=== PATIENT | female | born 1955 | race Caucasian/White ===

== ENCOUNTER 2017-07-27 14:46 | Inpatient (IN) | payer OTHER ==
[2017-07-27] MEDS ORDERED: BISACODYL 10 MG SUPP PR PRN (17:59)
--- NOTE | 2017-07-27 18:00 | PDOREHIP ---
Admission [facility] - Admission - 3 Day Assessment Period Admission Date/Day 1: 07/27/17 Day 2: 07/28/17 Day 3: 07/29/17 - Active Diagnoses Comorbidities and Co-existing Conditions at Admission: 41219. None of the Above - Skin Conditions Unhealed Pressure Ulcer (1 or more/Stage 1 or >)-Admission: 0. No
[2017-07-27] MEDS: ACETAMINOPHEN 325 MG TAB PO PRN (18:11)
--- NOTE | 2017-07-27 19:45 | GHP ---
[f rep st] HISTORY AND PHYSICAL POST ADMISSION PHYSICIAN EVALUATION AND REHABILITATION TREATMENT PLAN DATE OF ADMISSION: 07/27/2017 DATE OF EVALUATION: 07/27/2017. TIME OF EVALUATION: 1715. REFERRING FACILITY: [facility]. REFERRING PHYSICIAN: Dr. Valencia IMPAIRMENT GROUP: 1.2. DATE OF ONSET: 07/22/2017. REFERRING PHYSICIAN: Dr. Valencia. CONSULTING PHYSICIANS: She was seen by: 1. Dr. Jenaro Zafar, neurology service. 2. Neurointerventional Radiology. REHABLITATION DIAGNOSIS: Ischemic stroke with subsequent hemorrhagic transformation. ETIOLOGIC DIAGNOSIS: Right body involvement, (left brain). HISTORY OF PRESENT ILLNESS: This patient presented to [facility] on 07/22, with global aphasia, right facial droop and dysarthria. A head CT there showed a left MCA occlusion. She was treated with tPA and transferred to [facility] for possible intraarterial therapy. At [facility], she underwent a thrombectomy. Hospital course was complicated by a left temporal intracranial hemorrhage and extension to subarachnoid hemorrhage in the left frontoparietal lobes. Later, the hematoma enlarged with mild mass effect with a 3 mm [id number] shift. She underwent transthoracic and transesophageal echocardiograms. She has she was found to have a small patent foramen ovale, rvfzmhau-[id number]-[id number] mitral regurgitation, left atrial enlargement, and mild aortic regurgitation. She was also noted to have pulmonary hypertension, with an estimated right ventricular systolic pressure of 47. She was treated with atorvastatin for secondary stroke prophylaxis, levetiracetam for seizure prophylaxis, and acetaminophen for headache. She had been taking aspirin prior to the stroke and aspirin was discontinued due to the intracranial bleed. Plan for anticoagulation was to initiate for likely atrial fibrillation 2 weeks after hospital discharge, which would be August 10. STUDIES AND LABS: In the hospital, she had extensive repeated brain imaging. CT brain perfusion scanning on 07/22/2017, showed a 42 mL mismatched volume consistent with moderate-sized penumbra in the left MCA distribution. Head CT on the same day showed development of a large amount of subarachnoid hemorrhage in the left cerebral hemisphere and the left Sylvian fissure with mild mass effect on the left lateral ventricle. CT angiogram on 07/22, showed successful revascularization of a proximal left inferior M2 division thrombus with revascularization of the entire M2 territory. Additionally, there was congregational of flow past a nonocclusive M3 thrombus. Vasospasm was treated with intraarterial verapamil. There was a 50% narrowing of the cervical left internal carotid artery and tortuosity, and there were changes suggestive of atherosclerotic disease throughout the left internal carotid artery. Head and neck CT was otherwise normal in terms of vasculature. Head CT on 07/23/2017, showed slight interval increase in the size of the left temporoparietal intraaxial hematoma, but improvement of the left hemispheric subarachnoid hemorrhage. Head CT on 07/25, showed some vasogenic and cytotoxic edema adjacent to the hematoma, but improvement in the left hemispheric subarachnoid hemorrhage. A CBC on 07/25, showed mild anemia with a hemoglobin of 11.7 and hematocrit of 36.3, and a BMP on the same date showed mild hypernatremia with a sodium of 146. Her chloride was elevated at 116, otherwise renal function and electrolytes were within normal limits. INR was normal. Hemoglobin A1c was 5.4 and LDL was 35. PRECAUTIONS: She is a fall risk. She is an aspiration risk. She is a seizure risk. ACTIVE COMORBIDITIES: She questionably has the comorbidity of morbid obesity, but she would need to definitively have complications of obesity for it to be considered morbid, with a BMI of 37.5. Otherwise, she has no active tier 1, tier 2, or tier 3 comorbidities. PAST MEDICAL HISTORY: 1. Rheumatic heart disease as a child. 2. Hypothyroidism. PAST SURGICAL HISTORY: Hysterectomy in 1995. PREHOSPITAL MEDICATIONS: 1. Aspirin 81 mg p.o. daily. 2. Atorvastatin 10 mg p.o. daily. 3. Estradiol 0.5 mg p.o. daily. 4. [place] Thyroid 81.25 mg p.o. daily. ADMISSION MEDICATIONS: 1. Levetiracetam 1000 mg p.o. b.i.d. for 3 more doses, so to be completed with a 2nd dose on July 28. 2. Atorvastatin 40 mg 1 p.o. daily. 3. Calcium plus vitamin D 600/400 one p.o. daily. 4. [place] Thyroid 32.5 mg p.o. daily. 5. Vitamin D 2000 units p.o. daily. ALLERGIES: There are no known drug allergies. FAMILY HISTORY: Noncontributory. She reports that there is no family history of blood clotting disorders. PSYCHOSOCIAL HISTORY: She is . She lives with her . 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 She is a nonsmoker. REVIEW OF SYSTEMS: She complains of a headache in the left temporal region. She is aware that she has difficulty finding words. She denies difficulty swallowing, vision changes, weakness, numbness or tingling of the extremities. She denies cough or dyspnea, though she has been intermittently using oxygen in the hospital. Her reports that she snores, though he is not aware that she has had apneas. She says she usually awakens refreshed in the morning, but sometimes she does not. She denies a typical morning headache. She noticed palpitations prior to her stroke. She denies any palpitations currently, and there is no chest pain. She has a cough occasionally, including when she is eating or drinking. She denies dyspnea, though she recently found herself short of breath while playing golf with her . She denies nausea, vomiting, constipation, or diarrhea. She denies dysuria, urinary urgency, or urinary incontinence. She denies skin rash or skin breakdown. She denies joint pain or joint swelling, and she denies recent weight change. She denies fevers or chills. Otherwise, a 10-point review of systems is negative. PHYSICAL EXAMINATION: VITAL SIGNS: Not yet available in the chart. GENERAL: This is a well-nourished, well-developed, obese woman lying in bed in street clothes, cooperative, in mild distress due to headache. HEENT: Extraocular movements are intact. Pupils are equal, round, reactive to light. Mucous membranes are moist. Dentition is in good condition. She has a crowded airway , Mallampati class 4. NECK: Supple. HEART: There is a regular rate and rhythm with no murmurs, rubs, or gallops. LUNGS: Clear to auscultation bilaterally. ABDOMEN: Soft, nontender, nondistended with normoactive bowel sounds and no hepatosplenomegaly. EXTREMITIES: There is no cyanosis, clubbing , or edema. Radial pulses are 2+ bilaterally. Dorsalis pedis pulses are trace to 1+ bilaterally. NEUROLOGIC: She is alert and oriented x3. She has expressive aphasia with frequent word-finding difficulty and word substitution. There are no neologisms, however, and her speech that she does produce is intelligible. Cranial nerves 2-12 are grossly intact. There is no focal weakness. Sensation is intact to light touch and there is no extinction to double simultaneous stimulation. Deep tendon reflexes are 2+ bilaterally at the biceps, patella, and Achilles tendons. Plantar reflex is indeterminate. There is no pronator drift. There is no tremor. There is no dysmetria. There is no rigidity. CURRENT LEVEL OF FUNCTION: Per the preadmission screen regarding diet, feeding , and swallowing, she was on a mechanical soft diet with thin liquids and she was noted to have mild dysphagia. Regarding dressing, she was able to do this on the edge of the bed with contact guard assist to don her socks.For toileting , she required contact guard assist for transfers. Regarding bowel and bladder , she was continent. Bed mobility required contact guard assist for transfers. She required contact guard to minimal assist for sit to stand, requiring assistance to steady herself initially when she was standing. Sitting required minimal assist, though on exam today, she is independent with seated balance. Endurance was fair. She walked 10 feet with an unsteady gait pattern, mild medial to lateral sway requiring minimal assist initially, and then was able to ambulate 50 feet with a front-wheeled walker with a step-through gait pattern and contact guard assist. She had gait decomposition when distracted and she was unable to multitask. Regarding communication, she was noted to have expressive and receptive aphasia and moderate nonverbal oral apraxia. Regarding upper extremity, she was noted to have decreased coordination and to require increased time with maximal cues to complete serial bilateral finger opposition. IMPRESSION: This patient is a 61-year-old woman, who suffered a cerebrovascular accident causing global aphasia, right facial droop and dysarthria. She was treated with tPA thrombolysis and, subsequently, emergent thrombectomy. Her deficits resolved, but post procedure she developed a left parietotemporal hemorrhage with subarachnoid spread. She was transferred to the ICU and placed on levetiracetam for seizure prophylaxis. Evaluation for etiology of stroke included transthoracic and transesophageal echocardiogram. She was found to have a small interatrial shunt. There was no clot in the left atrial appendage and blood loss through the appendage was 37 cm /sec. She had moderate mitral regurgitation and mild aortic regurgitation. It was felt that she likely had paroxysmal atrial fibrillation due to left atrial enlargement. Anticoagulation was contraindicated immediately post hemorrhage, but was recommended to begin 2 weeks after hospital discharge, or approximately August 10, and she was recommended to have a followup head CT scan approximately August 10. Evaluation also revealed pulmonary hypertension with a right ventricular systolic pressure estimated at 47 mmHg. She was participating in therapies and appropriate for inpatient rehabilitation. Her goal is to complete a rehabilitation stay and then return home with family and supportive services as needed. For a safe discharge, it is anticipated that she will achieve independence with eating, dressing, grooming, and bed mobility, modified independence to independence for transfers and ambulation with the least restrictive device. She will need to be able to negotiate stairs. She will be tolerating the least restrictive diet. She will be able to make her needs known and communicate clearly. She will need to make cognitive gains to be able to be home alone safely. She will have therapy with Physical Therapy, Occupational Therapy, and Speech and Language Pathology for 60 minutes per day per discipline on 5-7 days of the week. Her expected duration of stay is 5-7 days. It is anticipated that upon discharge she will continue to benefit from outpatient speech and language pathology, as well as a stroke support group. PLAN: 1. Stroke in the left M2 branch of the middle cerebral artery, status post thrombolysis and thrombectomy with hemorrhagic transformation. She has deficits regarding mobility and activities of daily living. She will have treatment per PT and OT. 2. Expressive aphasia and possible cognitive impairment. Assessment and treatment per Speech and Language Pathology. 3. Dysphagia, mild. Continue DD2 diet as ordered out of the hospital. Assessment per Speech and Language Pathology. 4. Likely paroxysmal atrial fibrillation. Given the size and extent of her intracranial hemorrhage, anticoagulation is contraindicated in the short term. The plan is for her to have a repeat head CT on or about 08/10/2017, with decision regarding anticoagulation to depend on findings on the head CT. 5. Headache, likely related to intracranial hemorrhage. She has been receiving acetaminophen in the hospital and this will be continued. 6. Pulmonary hypertension on echocardiogram. This may be due to mitral valve regurgitation, however, she is also at risk for obstructive sleep apnea. She will have monitoring of her oxygen saturation and will receive supplemental oxygen on a p.r.n. basis. She is advised to have a full sleep study after discharge for definitive diagnosis and treatment. 7. Dyslipidemia. She was taking atorvastatin prior to her hospitalization and the dose has been increased. Continue atorvastatin. 8. Hypothyroidism, continue [place] Thyroid. 9. Prophylaxis. It is likely that it would be safe to provide prophylactic dose of enoxaparin, however, will first observe her for mobility. If she is able to ambulate 150 feet or greater 3 times a day, then it is unlikely that she will need prophylactic anticoagulation. She will have sequential compression devices at night. 10. Risk for seizure. There has been no seizure in the hospital. She has been on levetiracetam since she had her hemorrhage. This will be continued as per hospital discharge instructions through July 28. /[id number]/MODL MTDD
[2017-07-27] MEDS: levETIRAcetam 500 MG TAB PO SCH (20:05)
[2017-07-27] MEDS: ATORVASTATIN CALCIUM 40 MG TAB PO SCH (20:05)
[2017-07-28] MEDS: ACETAMINOPHEN 325 MG TAB PO PRN ×4 (00:36→19:29)
[2017-07-28] MEDS: levETIRAcetam 500 MG TAB PO SCH ×2 (08:58→20:19)
[2017-07-28] MEDS: CHOLECALCIFEROL VIT D3 2,000 UNITS TAB/CAP PO SCH (08:58)
[2017-07-28] MEDS: CALCIUM CARB W/VIT D 500 MG TAB PO SCH (08:58)
[2017-07-28] MEDS ORDERED: NATURE THROID 32.5 MG PO SCH (09:00)
--- NOTE | 2017-07-28 12:09 | SOAPPROG ---
SOAP Progress Note Assessment/Plan: Assessment: Stroke 07/22/17 in the left M2 branch of the middle cerebral artery, status post thrombolysis and thrombectomy with hemorrhagic transformation. * She has deficits regarding mobility and activities of daily living. She will have treatment per PT and OT. Expressive aphasia and possible cognitive impairment. Assessment and treatment per Speech and Language Pathology. Dysphagia, mild. Continue DD2 diet as ordered out of the hospital. Assessment per Speech and Language Pathology. Likely paroxysmal atrial fibrillation. * Given the size and extent of her intracranial hemorrhage, anticoagulation is contraindicated in the short term. * The plan is for her to have a repeat head CT on or about 08/10/2017, with decision regarding anticoagulation to depend on findings on the head CT. Headache, likely related to intracranial hemorrhage. * Adequate control with acetaminophen 650 mg q.4 hours p.r.n. but she is approaching her maximal dose today in early afternoon. Will add p.r.n. tramadol. Pulmonary hypertension on echocardiogram. * This may be due to mitral valve regurgitation, however, she is also at risk for obstructive sleep apnea. * She will have monitoring of her oxygen saturation and will receive supplemental oxygen on a p.r.n. basis. * She is advised to have a full sleep study after discharge for definitive diagnosis and treatment. Dyslipidemia. She was taking atorvastatin prior to her hospitalization and the dose has been increased. Continue atorvastatin. Hypothyroidism, continue [place] Thyroid. Prophylaxis. At most moderate risk due to age and obesity. There is no paralyzed limb. * Ambulated 150 feet with PT. Continue to work on mobility. She will have sequential compression devices at night. Risk for seizure. There has been no seizure in the hospital. She has been on levetiracetam since she had her hemorrhage. T * Continue levetiracetam 1000 mg twice daily as per hospital discharge instructions through July 28. 07/28/17 13:05 Subjective: Reports that she is getting some pain in her eyes especially on the left side this afternoon. She reports she has adequate pain control with acetaminophen. Nurse reported that she had wheezing and malaise earlier today; currently she is not complaining of any malaise or respiratory difficulty. No fevers or chills, no cough or dyspnea. Objective: Vital Signs Temp Pulse Resp BP Pulse Ox 36.3 C 62 16 131/76 H 95 07/28/17 08:00 07/28/17 08:00 07/28/17 08:00 07/27/17 19:33 07/28/17 08:00 07/27/17 07/28/17 07/29/17 05:59 05:59 05:59 Intake Total 600 350 Balance 600 350 Physical Exam - Physical Exam General Appearance: WD/WN, alert, no apparent distress, obese Respiratory: normal breath sounds, No crackles, No rhonchi, No wheezing Cardiac/Chest: regular rate, rhythm, edema (1+ bilateral pretibial), systolic murmur (2+ systolic left sternal border.), No diastolic murmur Skin: normal color, warm/dry Neuro/Psych: no motor/sensory deficits, alert, normal mood/affect, aphasia ( Expressive), speech abnormalities ICD10 Worksheet Patient Problems: Problems Problem Status Onset Aphasia S/P CVA Acute Non-traumatic intracranial subarachnoid hemorrhage Acute - ICD10 Problem Qualifiers (1) Aphasia S/P CVA (2) Non-traumatic intracranial subarachnoid hemorrhage
[2017-07-28] MEDS: traMADol 50 MG TAB PO PRN (14:56)
[2017-07-28] MEDS ORDERED: PNEUMOCOCCAL 0.5ML VACCINE VIAL IM ONE (15:04)
[2017-07-28] MEDS: NYSTATIN POWDER 15 GM BTL TP SCH ×2 (16:12→20:20)
[2017-07-28] MEDS: ATORVASTATIN CALCIUM 40 MG TAB PO SCH (20:19)
[2017-07-29] MEDS: ACETAMINOPHEN 325 MG TAB PO PRN ×2 (00:32→07:03)
[2017-07-29] MEDS: NATURE THROID 32.5 MG PO SCH (05:36)
[2017-07-29] MEDS: CALCIUM CARB W/VIT D 500 MG TAB PO SCH (08:15)
[2017-07-29] MEDS: CHOLECALCIFEROL VIT D3 2,000 UNITS TAB/CAP PO SCH (08:15)
[2017-07-29] MEDS: NYSTATIN POWDER 15 GM BTL TP SCH ×3 (08:22→21:08)
--- NOTE | 2017-07-29 10:33 | SOAPPROG ---
SOAP Progress Note Assessment/Plan: Assessment: Stroke 07/22/17 in the left M2 branch of the middle cerebral artery, status post thrombolysis and thrombectomy with hemorrhagic transformation. * Initial functional independence measure is 79 on 07/29/2017. Function fluctuates based on fatigue. She scored 46/56 on the Campbell balance inventory in the afternoon but had better balancing morning. She walked 150 feet standby assist with no device she has climbed diffuse stairs with rail and standby assist. She has a right ignoral and contacts objects on the right when walking. Motor planning deficits noted by PT and OT. Setup to standby assist for grooming and hygiene and dressing. Continue PT and OT. Language function/cognition. * Moderate to severe expressive aphasia. Mild to moderate receptive aphasia. * Deficits to memory, problem solving, impulse control. * Continue speech and language pathology. Dysphagia, mild. Continue DD2 diet; may advance to DD 3 diet today 07/29/2017. Headache, likely related to intracranial hemorrhage. * Per nursing, acetaminophen is more effective than tramadol. Will schedule acetaminophen 1000 mg q.8 hours. Continue tramadol 50 mg q.6 hours p.r.n. Likely paroxysmal atrial fibrillation. * Given the size and extent of her intracranial hemorrhage, anticoagulation is contraindicated in the short term. * The plan is for her to have a repeat head CT on or about 08/10/2017, with decision regarding anticoagulation to depend on findings on the head CT. Pulmonary hypertension on echocardiogram. * This may be due to mitral valve regurgitation, however, she is also at risk for obstructive sleep apnea. * Using O2 at night but not during the day. * She is advised to have a full sleep study after discharge for definitive diagnosis and treatment. Dyslipidemia. She was taking atorvastatin prior to her hospitalization and the dose has been increased. Continue atorvastatin. Hypothyroidism, continue [place] Thyroid. Prophylaxis. At most moderate risk due to age and obesity. There is no paralyzed limb. * Ambulated 150 feet with PT. Continue to work on mobility. She will have sequential compression devices at night. Risk for seizure. There has been no seizure in the hospital. She has been on levetiracetam since she had her hemorrhage. * Levetiracetam 1000 mg twice daily discontinued after 07/28/2017 per hospital discharge instructions. Attended staffing, 15 minutes. Discussed with case management, pharmacy, dietitian, PT, OT, [facility] ADMINISTRATOR. She lives with her . They are both retired. She has been handling most of household management including finances and cooking. There to local sons and a [id number] involved in her care. Plan to discharge home with family support. Tentative discharge date set for 2016. 07/29/17 09:59 Subjective: Report awakening around midnight with a headache and says her sleep was intermittent subsequently. Otherwise without complaints, in good spirits. Notes that her ability to speak is improving. No cough, dyspnea, fevers, chills. Objective: Vital Signs Temp Pulse Resp BP Pulse Ox 36.3 C 60 17 125/83 H 93 07/29/17 05:49 07/29/17 05:49 07/29/17 05:49 07/29/17 05:49 07/29/17 05:49 07/28/17 07/29/17 07/30/17 05:59 05:59 05:59 Intake Total 600 1200 Output Total 301 650 Balance 600 899 -650 - Time Spent With Patient Time Spent With Patient: Greater than 35 minutes floor time today, including more than 50% of time in coordination of care during staffing meeting, and counseling patient. Physical Exam - Physical Exam General Appearance: WD/WN, alert, no apparent distress, obese Respiratory: normal breath sounds, No crackles, No rhonchi, No wheezing Cardiac/Chest: regular rate, rhythm, edema (Trace bilateral pretibial), systolic murmur Skin: normal color, warm/dry Neuro/Psych: no motor/sensory deficits, alert, normal mood/affect, oriented x 3 , aphasia (Mild to moderate word-finding difficulties.) ICD10 Worksheet Patient Problems: Problems Problem Status Onset Aphasia S/P CVA Acute Non-traumatic intracranial subarachnoid hemorrhage Acute - ICD10 Problem Qualifiers (1) Aphasia S/P CVA (2) Non-traumatic intracranial subarachnoid hemorrhage
[2017-07-29] MEDS: traMADol 50 MG TAB PO PRN (12:31)
[2017-07-29] MEDS: ACETAMINOPHEN 500 MG TAB PO SCH ×2 (14:41→21:05)
[2017-07-29] MEDS: ATORVASTATIN CALCIUM 40 MG TAB PO SCH (21:05)
[2017-07-30] MEDS: ACETAMINOPHEN 500 MG TAB PO SCH ×3 (05:47→21:37)
[2017-07-30] MEDS: NATURE THROID 32.5 MG PO SCH (05:48)
[2017-07-30] MEDS: CHOLECALCIFEROL VIT D3 2,000 UNITS TAB/CAP PO SCH (07:53)
[2017-07-30] MEDS: CALCIUM CARB W/VIT D 500 MG TAB PO SCH (07:53)
[2017-07-30] MEDS: SENNOSIDES 1 TAB PO PRN (07:53)
[2017-07-30] MEDS: NYSTATIN POWDER 15 GM BTL TP SCH ×3 (09:00→21:38)
--- NOTE | 2017-07-30 09:40 | SOAPPROG ---
SOAP Progress Note Assessment/Plan: Assessment: Assessment: Stroke 07/22/17 in the left M2 branch of the middle cerebral artery, status post thrombolysis and thrombectomy with hemorrhagic transformation. * Initial functional independence measure is 79 on 07/29/2017. Function fluctuates based on fatigue. She scored 46/56 on the Campbell balance inventory in the afternoon but had better balancing morning. She walked 150 feet standby assist with no device she has climbed diffuse stairs with rail and standby assist. She has a right ignoral and contacts objects on the right when walking. Motor planning deficits noted by PT and OT. Setup to standby assist for grooming and hygiene and dressing. Continue PT and OT. LOW BACK PAIN- MECHANICAL FROM PROLINED SITTING AND ANTERIOR PELVIC TILT. WOULD BENEFIT FROM CORE STRENGTHENING AND PELVIC NEUTRAL POSTION Language function/cognition. * Moderate to severe expressive aphasia. Mild to moderate receptive aphasia. * Deficits to memory, problem solving, impulse control. * Continue speech and language pathology. Dysphagia, mild. Continue DD2 diet; may advance to DD 3 diet today 07/29/2017. Headache, likely related to intracranial hemorrhage. * Per nursing, acetaminophen is more effective than tramadol. Will schedule acetaminophen 1000 mg q.8 hours. Continue tramadol 50 mg q.6 hours p.r.n. * NO SCALP TENDERNESS, NO TENDERNESS OVER OCCIPITAL NERVE Likely paroxysmal atrial fibrillation. * Given the size and extent of her intracranial hemorrhage, anticoagulation is contraindicated in the short term. * The plan is for her to have a repeat head CT on or about 08/10/2017, with decision regarding anticoagulation to depend on findings on the head CT. Pulmonary hypertension on echocardiogram. * This may be due to mitral valve regurgitation, however, she is also at risk for obstructive sleep apnea. * Using O2 at night but not during the day. * She is advised to have a full sleep study after discharge for definitive diagnosis and treatment. Dyslipidemia. She was taking atorvastatin prior to her hospitalization and the dose has been increased. Continue atorvastatin. Hypothyroidism, continue [place] Thyroid. Prophylaxis. At most moderate risk due to age and obesity. There is no paralyzed limb. * Ambulated 150 feet with PT. Continue to work on mobility. She will have sequential compression devices at night. Risk for seizure. There has been no seizure in the hospital. She has been on levetiracetam since she had her hemorrhage. * Levetiracetam 1000 mg twice daily discontinued after 07/28/2017 per hospital discharge instructions. Plan: 07/30/17 09:41 Subjective: She c?o left sided scalp pain and LBP. Objective: Vital Signs Temp Pulse Resp BP Pulse Ox 36.5 C 64 18 138/68 H 96 07/30/17 05:51 07/30/17 07:59 07/30/17 05:51 07/30/17 07:59 07/30/17 05:51 07/29/17 07/30/17 07/31/17 05:59 05:59 04:59 Intake Total 1200 1740 840 Output Total 301 1350 300 Balance 899 390 540 Physical Exam - Physical Exam General Appearance: WD/WN, alert, no apparent distress Respiratory: lungs clear, normal breath sounds Cardiac/Chest: No edema Back: Normal inspection, Other (tenderness lubosacral region) Skin: other (No tenderness over scalp or occipital region. ) Extremities: No calf tenderness, No swelling, No Kyle's sign Neuro/Psych: alert (not oriented to year. ), cognition abnormalities ( expressive mild expressive apahasia), disoriented to time ICD10 Worksheet Patient Problems: Problems Problem Status Onset Aphasia S/P CVA Acute Non-traumatic intracranial subarachnoid hemorrhage Acute
[2017-07-30] MEDS: traMADol 50 MG TAB PO PRN ×2 (10:39→18:58)
[2017-07-30] MEDS: ATORVASTATIN CALCIUM 40 MG TAB PO SCH (21:38)
[2017-07-31] MEDS: ACETAMINOPHEN 500 MG TAB PO SCH ×3 (05:15→20:58)
[2017-07-31] MEDS: NATURE THROID 32.5 MG PO SCH (05:19)
[2017-07-31] MEDS: traMADol 50 MG TAB PO PRN ×2 (07:58→17:39)
[2017-07-31] MEDS: CALCIUM CARB W/VIT D 500 MG TAB PO SCH (07:58)
[2017-07-31] MEDS: CHOLECALCIFEROL VIT D3 2,000 UNITS TAB/CAP PO SCH (07:58)
[2017-07-31] MEDS: NYSTATIN POWDER 15 GM BTL TP SCH ×3 (07:59→20:59)
--- NOTE | 2017-07-31 09:27 | SOAPPROG ---
SOAP Progress Note Assessment/Plan: Assessment: Assessment: Stroke 07/22/17 in the left M2 branch of the middle cerebral artery, status post thrombolysis and thrombectomy with hemorrhagic transformation. * Initial functional independence measure is 79 on 07/29/2017. Function fluctuates based on fatigue. She scored 46/56 on the Campbell balance inventory in the afternoon but had better balancing morning. She walked 150 feet standby assist with no device she has climbed diffuse stairs with rail and standby assist. She has a right ignoral and contacts objects on the right when walking. Motor planning deficits noted by PT and OT. Setup to standby assist for grooming and hygiene and dressing. Continue PT and OT. LOW BACK PAIN- LESS THIS AM. MECHANICAL FROM PROLONGED SITTING AND ANTERIOR PELVIC TILT. WOULD BENEFIT FROM CORE STRENGTHENING AND PELVIC NEUTRAL POSTION Language function/cognition. * Moderate to severe expressive aphasia. Mild to moderate receptive aphasia. * Deficits to memory, problem solving, impulse control. * Continue speech and language pathology. Dysphagia, mild. Continue DD2 diet; may advance to DD 3 diet today 07/29/2017. Headache, likely related to intracranial hemorrhage. NO C/O GUARDADO OR SCALP PAIN THIS AM. * Per nursing, acetaminophen is more effective than tramadol. Will schedule acetaminophen 1000 mg q.8 hours. Continue tramadol 50 mg q.6 hours p.r.n. * NO SCALP TENDERNESS, NO TENDERNESS OVER OCCIPITAL NERVE Likely paroxysmal atrial fibrillation. * Given the size and extent of her intracranial hemorrhage, anticoagulation is contraindicated in the short term. * The plan is for her to have a repeat head CT on or about 08/10/2017, with decision regarding anticoagulation to depend on findings on the head CT. Pulmonary hypertension on echocardiogram. * This may be due to mitral valve regurgitation, however, she is also at risk for obstructive sleep apnea. * Using O2 at night but not during the day. * She is advised to have a full sleep study after discharge for definitive diagnosis and treatment. Dyslipidemia. She was taking atorvastatin prior to her hospitalization and the dose has been increased. Continue atorvastatin. Hypothyroidism, continue [place] Thyroid. Prophylaxis. At most moderate risk due to age and obesity. There is no paralyzed limb. * Ambulated 150 feet with PT. Continue to work on mobility. She will have sequential compression devices at night. Risk for seizure. There has been no seizure in the hospital. She has been on levetiracetam since she had her hemorrhage. * Levetiracetam 1000 mg twice daily discontinued after 07/28/2017 per hospital discharge instructions. Plan: 07/30/17 09:41 07/31/17 09:26 Subjective: LESS LOW BACK PAIN THIS AM Objective: Vital Signs Temp Pulse Resp BP Pulse Ox 36.4 C 61 16 129/78 H 94 07/31/17 06:26 07/31/17 06:26 07/31/17 06:26 07/31/17 06:26 07/31/17 06:26 07/30/17 07/31/17 08/01/17 06:59 05:59 05:59 Intake Total Output Total Balance Physical Exam - Physical Exam General Appearance: WD/WN, alert, no apparent distress Neck: non-tender Respiratory: lungs clear Cardiac/Chest: No edema Skin: normal color Extremities: normal range of motion (PROM UE/LE), No swelling, No Kyle's sign Neuro/Psych: alert, disoriented to time ICD10 Worksheet Patient Problems: Problems Problem Status Onset Aphasia S/P CVA Acute Non-traumatic intracranial subarachnoid hemorrhage Acute
[2017-07-31] MEDS: ATORVASTATIN CALCIUM 40 MG TAB PO SCH (20:58)
[2017-08-01] MEDS: NATURE THROID 32.5 MG PO SCH (05:43)
[2017-08-01] MEDS: ACETAMINOPHEN 500 MG TAB PO SCH ×3 (05:43→19:55)
[2017-08-01] MEDS: CHOLECALCIFEROL VIT D3 2,000 UNITS TAB/CAP PO SCH (08:16)
[2017-08-01] MEDS: CALCIUM CARB W/VIT D 500 MG TAB PO SCH (08:16)
[2017-08-01] MEDS: SENNOSIDES 1 TAB PO PRN ×2 (09:55→19:55)
[2017-08-01] MEDS: NYSTATIN POWDER 15 GM BTL TP SCH ×3 (10:01→19:56)
--- NOTE | 2017-08-01 12:08 | SOAPPROG ---
SOAP Progress Note Assessment/Plan: Assessment: Stroke 07/22/17 in the left M2 branch of the middle cerebral artery, status post thrombolysis and thrombectomy with hemorrhagic transformation. * Initial functional independence measure is 79 on 07/29/2017. Function fluctuates based on fatigue. She scored 46/56 on the Campbell balance inventory in the afternoon but had better balance in the morning. She walked 150 feet standby assist with no device she has climbed diffuse stairs with rail and standby assist. She has a right ignoral and contacts objects on the right when walking. Motor planning deficits noted by PT and OT. Setup to standby assist for grooming and hygiene and dressing. Continue PT and OT. Language function/cognition. * Moderate to severe expressive aphasia. Mild to moderate receptive aphasia. * Deficits to memory, problem solving, impulse control. * Continue speech and language pathology. Dysphagia, mild. Advanced to regular texture and thin liquids. Headache, likely related to intracranial hemorrhage. * Per nursing, acetaminophen is more effective than tramadol. Will schedule acetaminophen 1000 mg q.8 hours. Continue tramadol 50 mg q.6 hours p.r.n. Likely paroxysmal atrial fibrillation. * Given the size and extent of her intracranial hemorrhage, anticoagulation is contraindicated in the short term. * The plan is for her to have a repeat head CT on or about 08/10/2017, with decision regarding anticoagulation to depend on findings on the head CT. Pulmonary hypertension on echocardiogram. * This may be due to mitral valve regurgitation, however, she is also at risk for obstructive sleep apnea. * Using O2 at night but not during the day. * She is advised to have a full sleep study after discharge for definitive diagnosis and treatment. Dyslipidemia. She was taking atorvastatin prior to her hospitalization and the dose has been increased. Continue atorvastatin. Hypothyroidism, continue [place] Thyroid. Prophylaxis. At most moderate risk due to age and obesity. There is no paralyzed limb. * Ambulated 150 feet with PT. Continue to work on mobility. She will have sequential compression devices at night. Risk for seizure. There has been no seizure in the hospital. She has been on levetiracetam since she had her hemorrhage. * Levetiracetam 1000 mg twice daily discontinued after 07/28/2017 per hospital discharge instructions. She lives with her . They are both retired. She has been handling most of household management including finances and cooking. There to local sons and a [id number] involved in her care. Plan to discharge home with family support. Tentative discharge date set for 08/10/2017. 08/01/17 12:04 Subjective: No complaints. Sleeping well. Still with intermittent headaches. Otherwise not in pain, no cough, dyspnea, fevers, chills. Objective: Vital Signs Temp Pulse Resp BP Pulse Ox 36.8 C 61 18 153/78 H 97 08/01/17 06:34 08/01/17 06:34 08/01/17 06:34 08/01/17 06:34 08/01/17 06:34 07/31/17 08/01/17 08/02/17 05:59 05:59 05:59 Intake Total 1200 420 Output Total 51 Balance 1200 369 Physical Exam - Physical Exam General Appearance: WD/WN, alert, no apparent distress, obese Respiratory: normal breath sounds, No crackles, No rhonchi, No wheezing Cardiac/Chest: regular rate, rhythm, systolic murmur Skin: normal color, warm/dry Neuro/Psych: no motor/sensory deficits, alert, normal mood/affect, oriented x 3 , aphasia (Expressive greater than receptive) ICD10 Worksheet Patient Problems: Problems Problem Status Onset Aphasia S/P CVA Acute Non-traumatic intracranial subarachnoid hemorrhage Acute - ICD10 Problem Qualifiers (1) Aphasia S/P CVA (2) Non-traumatic intracranial subarachnoid hemorrhage
[2017-08-01] MEDS: ATORVASTATIN CALCIUM 40 MG TAB PO SCH (19:55)
[2017-08-02] MEDS: ACETAMINOPHEN 500 MG TAB PO SCH ×3 (06:26→21:42)
[2017-08-02] MEDS: NATURE THROID 32.5 MG PO SCH (06:26)
[2017-08-02] MEDS: SENNOSIDES 1 TAB PO PRN (08:45)
[2017-08-02] MEDS: CALCIUM CARB W/VIT D 500 MG TAB PO SCH (08:45)
[2017-08-02] MEDS: CHOLECALCIFEROL VIT D3 2,000 UNITS TAB/CAP PO SCH (08:45)
[2017-08-02] MEDS: NYSTATIN POWDER 15 GM BTL TP SCH ×3 (09:16→21:44)
--- NOTE | 2017-08-02 12:32 | SOAPPROG ---
SOAP Progress Note Assessment/Plan: Assessment: Stroke 07/22/17 in the left M2 branch of the middle cerebral artery, status post thrombolysis and thrombectomy with hemorrhagic transformation. * Initial functional independence measure is 79 on 07/29/2017, improved to 85 on 08/02/2017. Independent in her room during the day. Impaired dual testing and impaired motor planning noted when ambulating. Has climbed 12 steps with supervision. Supervision for level for ADLs but has some decreased balance. Did kitchen task with no errors except she left the stove on at the end; recommending supervision for kitchen tasks. She has a right hemineglect. Continue PT and OT. Language function/cognition. * Moderate to severe expressive aphasia. Mild to moderate receptive aphasia. * Deficits to memory, problem solving, impulse control. * Continue speech and language pathology. Dysphagia, mild. Advanced to regular texture and thin liquids. Headache, likely related to intracranial hemorrhage. * Per nursing, acetaminophen is more effective than tramadol. Will schedule acetaminophen 1000 mg q.8 hours. Continue tramadol 50 mg q.6 hours p.r.n. Likely paroxysmal atrial fibrillation. * Given the size and extent of her intracranial hemorrhage, anticoagulation is contraindicated in the short term. * The plan is for her to have a repeat head CT on or about 08/10/2017, with decision regarding anticoagulation to depend on findings on the head CT. Pulmonary hypertension on echocardiogram. * This may be due to mitral valve regurgitation, however, she is also at risk for obstructive sleep apnea. * Hypoxia daytime and nighttime has resolved. * She is advised to have a full sleep study after discharge for definitive diagnosis and treatment. Right hip pain. Possible DJD. * She does not feel that it is significant enough to warrant on x-ray her knee specific treatment. Continue working with physical therapy. Dyslipidemia. She was taking atorvastatin prior to her hospitalization and the dose has been increased. Continue atorvastatin. Hypothyroidism, continue [place] Thyroid. Prophylaxis. At most moderate risk due to age and obesity. There is no paralyzed limb. * Ambulated 150 feet with PT. Continue to work on mobility. She will have sequential compression devices at night. Risk for seizure. There has been no seizure in the hospital. She has been on levetiracetam since she had her hemorrhage. * Levetiracetam 1000 mg twice daily discontinued after 07/28/2017 per hospital discharge instructions. Attended staffing, 15 minutes. 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 She lives with her . They are both retired. There is good family support. She has been handling most of household management including finances and cooking. There to local sons and a [id number] involved in her care. Plan to discharge home with family support. Tentative discharge date set for 08/10/2017. Plan for outpatient SSN/SSBN WEAPONS EQUIPMENT OPERATOR and OT. 08/02/17 13:50 Subjective: Complains of right groin pain. Better if she ambulates more. thinks it might be due to the bed and how much time she spends in bed. They report that there is now a recliner in the room. Otherwise without complaints. Sleeping okay, no cough or dyspnea, no fevers or chills. Bowels moving. Objective: Vital Signs Temp Pulse Resp BP Pulse Ox 36.7 C 65 16 125/74 H 92 08/02/17 07:01 08/02/17 07:01 08/02/17 07:01 08/02/17 07:01 08/02/17 07:01 08/01/17 08/02/17 08/03/17 05:59 05:59 05:59 Intake Total 1200 1660 618 Output Total 751 Balance 1200 909 618 - Time Spent With Patient Time Spent With Patient: Greater than 35 minutes floor time today, including more than 50% of time in coordination of care during staffing meeting, and counseling patient and . Physical Exam - Physical Exam General Appearance: WD/WN, alert, no apparent distress, obese Respiratory: No respiratory distress, No accessory muscle use Cardiac/Chest: edema (1+ B pretibial) Skin: normal color, warm/dry Extremities: other (No tenderness right thigh or over greater trochanter.), No calf tenderness Neuro/Psych: no motor/sensory deficits, alert, normal mood/affect, oriented x 3 , aphasia (Expressive) ICD10 Worksheet Patient Problems: Problems Problem Status Onset Aphasia S/P CVA Acute Non-traumatic intracranial subarachnoid hemorrhage Acute - ICD10 Problem Qualifiers (1) Aphasia S/P CVA (2) Non-traumatic intracranial subarachnoid hemorrhage
[2017-08-02] MEDS: ATORVASTATIN CALCIUM 40 MG TAB PO SCH (21:42)
[2017-08-03] MEDS: NATURE THROID 32.5 MG PO SCH (05:53)
[2017-08-03] MEDS: ACETAMINOPHEN 500 MG TAB PO SCH ×3 (06:34→20:24)
[2017-08-03] MEDS: CALCIUM CARB W/VIT D 500 MG TAB PO SCH (08:57)
[2017-08-03] MEDS: CHOLECALCIFEROL VIT D3 2,000 UNITS TAB/CAP PO SCH (08:57)
[2017-08-03] MEDS: NYSTATIN POWDER 15 GM BTL TP SCH ×3 (09:00→20:24)
--- NOTE | 2017-08-03 12:00 | SOAPPROG ---
SOAP Progress Note Assessment/Plan: Assessment: Stroke 07/22/17 in the left M2 branch of the middle cerebral artery, status post thrombolysis and thrombectomy with hemorrhagic transformation. * Initial functional independence measure is 79 on 07/29/2017, improved to 85 on 08/02/2017. Independent in her room during the day. Impaired dual tasking and impaired motor planning noted when ambulating. Has climbed 12 steps with supervision. Supervision for level for ADLs but has some decreased balance. Did kitchen task with no errors except she left the stove on at the end; recommending supervision for kitchen tasks. She has a right hemineglect. Continue PT and OT. Language function/cognition. * Moderate to severe expressive aphasia. Mild to moderate receptive aphasia. * Deficits to memory, problem solving, impulse control. * Continue speech and language pathology. Dysphagia, mild. Advanced to regular texture and thin liquids. Headache, likely related to intracranial hemorrhage. * Per nursing, acetaminophen is more effective than tramadol. Will schedule acetaminophen 1000 mg q.8 hours. Continue tramadol 50 mg q.6 hours p.r.n. Likely paroxysmal atrial fibrillation. * Given the size and extent of her intracranial hemorrhage, anticoagulation is contraindicated in the short term. * The plan is for her to have a repeat head CT on or about 08/10/2017, with decision regarding anticoagulation to depend on findings on the head CT. Pulmonary hypertension on echocardiogram. * This may be due to mitral valve regurgitation, however, she is also at risk for obstructive sleep apnea. * Hypoxia daytime and nighttime has resolved. * She is advised to have a full sleep study after discharge for definitive diagnosis and treatment. Right hip pain. Possible DJD. Possible residual pain from site of catheter used for thrombolysis. * No signs or symptoms of infection or seroma. * She does not feel that it is significant enough to warrant on x-ray her knee specific treatment. Continue working with physical therapy. Dyslipidemia. She was taking atorvastatin prior to her hospitalization and the dose has been increased. Continue atorvastatin. Hypothyroidism, continue [place] Thyroid. Prophylaxis. At most moderate risk due to age and obesity. There is no paralyzed limb. * Ambulated 150 feet with PT. Continue to work on mobility. She will have sequential compression devices at night. Risk for seizure. There has been no seizure in the hospital. She has been on levetiracetam since she had her hemorrhage. * Levetiracetam 1000 mg twice daily discontinued after 07/28/2017 per hospital discharge instructions. She lives with her . They are both retired. There is good family support. She has been handling most of household management including finances and cooking. There to local sons and a [id number] involved in her care. Plan to discharge home with family support. Tentative discharge date set for . Plan for outpatient NUT ROASTER HELPER and OT. 08/03/17 13:18 Subjective: Noting return of headache. Last dose of acetaminophen was 5 and 0.5 hours ago. Sleeping well. Has occasional right groin pain; sister wonders if it is due to decided for catheterization. No constipation; continues to use prune juice. Notes difficulty finding words. Objective: Vital Signs Temp Pulse Resp BP Pulse Ox 36.6 C 65 16 128/69 H 94 08/03/17 06:23 08/03/17 06:23 08/03/17 06:23 08/03/17 06:23 08/03/17 06:23 08/02/17 08/03/17 08/04/17 05:59 05:59 05:59 Intake Total 1660 2204 660 Output Total 751 Balance 909 2204 660 Physical Exam - Physical Exam General Appearance: WD/WN, alert, no apparent distress, obese Respiratory: No respiratory distress, No accessory muscle use Cardiac/Chest: No edema Skin: normal color, warm/dry Neuro/Psych: no motor/sensory deficits, alert, normal mood/affect, oriented x 3 , aphasia (Expressive) ICD10 Worksheet Patient Problems: Problems Problem Status Onset Aphasia S/P CVA Acute Non-traumatic intracranial subarachnoid hemorrhage Acute - ICD10 Problem Qualifiers (1) Aphasia S/P CVA (2) Non-traumatic intracranial subarachnoid hemorrhage
[2017-08-03] MEDS: ATORVASTATIN CALCIUM 40 MG TAB PO SCH (20:24)
[2017-08-04] MEDS: ACETAMINOPHEN 500 MG TAB PO SCH ×3 (06:21→20:48)
[2017-08-04] MEDS: NATURE THROID 32.5 MG PO SCH (06:25)
[2017-08-04] MEDS: NYSTATIN POWDER 15 GM BTL TP SCH ×3 (07:35→20:49)
[2017-08-04] MEDS: CALCIUM CARB W/VIT D 500 MG TAB PO SCH (08:40)
[2017-08-04] MEDS: CHOLECALCIFEROL VIT D3 2,000 UNITS TAB/CAP PO SCH (08:40)
--- NOTE | 2017-08-04 10:45 | PDOREHIP ---
Admission [facility] - Admission - 3 Day Assessment Period Admission Date/Day 1: 07/27/17 Day 2: 07/28/17 Day 3: 07/29/17 Discharge [facility] - Discharge - 3 Day Assessment Period 2 Days Prior to Anticipated Discharge Date: 08/03/17 1 Day Prior to Anticipated Discharge Date: 08/04/17 Anticipated Discharge Date: 08/05/17 - Discharge Skin Conditions Unhealed Pressure Ulcer (1 or more/Stage 1 or >)-Discharge: 0. No
--- NOTE | 2017-08-04 10:51 | SOAPPROG ---
[facility] Progress Note Assessment/Plan: 62 yo F with Stroke 07/22/17 in the left M2 branch of the middle cerebral artery , status post thrombolysis and thrombectomy with hemorrhagic transformation. Today's update: doing well, answered questions and coordinated discharge planning. A total of 40 minutes was spent on the floor in the care of the patient, the majority was spent in the counseling and coordination of care regarding discharge planning and aphasia recovery. Remainder of plan below is relatively unchanged. Stroke rehab, impairments in mobility and self care * Initial functional independence measure is 79 on 07/29/2017, improved to 85 on 08/02/2017. Independent in her room during the day. Impaired dual tasking and impaired motor planning noted when ambulating. Has climbed 12 steps with supervision. Supervision for level for ADLs but has some decreased balance. Did kitchen task with no errors except she left the stove on at the end; recommending supervision for kitchen tasks. She has a right hemineglect. Continue PT and OT. Language function/cognition. * Moderate to severe expressive aphasia. Mild to moderate receptive aphasia. * Deficits to memory, problem solving, impulse control. * Continue speech and language pathology. Dysphagia, mild. Advanced to regular texture and thin liquids. Headache, likely related to intracranial hemorrhage. * Per nursing, acetaminophen is more effective than tramadol. Will schedule acetaminophen 1000 mg q.8 hours. Continue tramadol 50 mg q.6 hours p.r.n. Likely paroxysmal atrial fibrillation. * Given the size and extent of her intracranial hemorrhage, anticoagulation is contraindicated in the short term. * The plan is for her to have a repeat head CT on or about 08/10/2017, with decision regarding anticoagulation to depend on findings on the head CT. Pulmonary hypertension on echocardiogram. * This may be due to mitral valve regurgitation, however, she is also at risk for obstructive sleep apnea. * Hypoxia daytime and nighttime has resolved. * She is advised to have a full sleep study after discharge for definitive diagnosis and treatment. Right hip pain. Possible DJD. Possible residual pain from site of catheter used for thrombolysis. * No signs or symptoms of infection or seroma. * She does not feel that it is significant enough to warrant on x-ray her knee specific treatment. Continue working with physical therapy. Dyslipidemia. She was taking atorvastatin prior to her hospitalization and the dose has been increased. Continue atorvastatin. Hypothyroidism, continue [place] Thyroid. Prophylaxis. At most moderate risk due to age and obesity. There is no paralyzed limb. * Ambulated 150 feet with PT. Continue to work on mobility. She will have sequential compression devices at night. Risk for seizure. There has been no seizure in the hospital. She has been on levetiracetam since she had her hemorrhage. * Levetiracetam 1000 mg twice daily discontinued after 07/28/2017 per hospital discharge instructions. She lives with her . They are both retired. There is good family support. She has been handling most of household management including finances and cooking. There to local sons and a [id number] involved in her care. Plan to discharge home with family support. Tentative discharge date set for . Plan for outpatient [facility] and OT. 08/04/17 10:48 Subjective: CC; Discharge planning no acute events overnight. no new shortness of breath or chest pain, no new numbness, tingling or weakness. Discussed follow up plans and need for close PCP coordination. headache improved, aphasia slowly improving. will need follow up with cardiology, neurology, pcp, and physiatry with [facility]. Objective: Vital Signs Temp Pulse Resp BP Pulse Ox 36.8 C 63 16 133/79 H 94 08/04/17 06:38 08/04/17 06:38 08/04/17 06:38 08/04/17 06:38 08/04/17 06:38 08/03/17 08/04/17 08/05/17 05:59 05:59 05:59 Intake Total 2204 1560 521 Balance 2204 1560 521 Physical Exam - Physical Exam General Appearance: alert, no apparent distress Respiratory: No respiratory distress, No accessory muscle use Cardiac/Chest: regular rate, rhythm, No edema Skin: normal color, warm/dry, No cyanosis Extremities: non-tender, No pedal edema, No swelling Neuro/Psych: alert, normal mood/affect ICD10 Worksheet Patient Problems: Problems Problem Status Onset Aphasia S/P CVA Acute Non-traumatic intracranial subarachnoid hemorrhage Acute
[2017-08-04] MEDS: ATORVASTATIN CALCIUM 40 MG TAB PO SCH (20:48)
[2017-08-05] MEDS: ACETAMINOPHEN 500 MG TAB PO SCH (05:36)
[2017-08-05] MEDS: NATURE THROID 32.5 MG PO SCH (05:37)
[2017-08-05 05:53] VITALS: BP 145/78; PULSE 62; RESP 18; TEMP 97.8; O2SAT 94
[2017-08-05] MEDS: CALCIUM CARB W/VIT D 500 MG TAB PO SCH (08:26)
[2017-08-05] MEDS: CHOLECALCIFEROL VIT D3 2,000 UNITS TAB/CAP PO SCH (08:26)
[2017-08-05] MEDS: NYSTATIN POWDER 15 GM BTL TP SCH (08:51)
--- NOTE | 2017-08-05 13:01 | SOAPPROG ---
[facility] Progress Note Assessment/Plan: Assessment: 62 yo F with Stroke 07/22/17 in the left M2 branch of the middle cerebral artery , status post thrombolysis and thrombectomy with hemorrhagic transformation. Today's update: doing well, answered final questions regarding discharge planning. A total of 20 minutes was spent on the floor in the care of the patient, the majority was spent in the counseling and coordination of care regarding discharge planning and aphasia recovery. Remainder of plan below is relatively unchanged. Stroke rehab, impairments in mobility and self care * Initial functional independence measure is 79 on 07/29/2017, improved to 85 on 08/02/2017. Independent in her room during the day. Impaired dual tasking and impaired motor planning noted when ambulating. Has climbed 12 steps with supervision. Supervision for level for ADLs but has some decreased balance. Did kitchen task with no errors except she left the stove on at the end; recommending supervision for kitchen tasks. She has a right hemineglect. Continue PT and OT. Language function/cognition. * Moderate to severe expressive aphasia. Mild to moderate receptive aphasia. * Deficits to memory, problem solving, impulse control. * Continue speech and language pathology. Dysphagia, mild. Advanced to regular texture and thin liquids. Headache, likely related to intracranial hemorrhage. * Per nursing, acetaminophen is more effective than tramadol. Will schedule acetaminophen 1000 mg q.8 hours. Continue tramadol 50 mg q.6 hours p.r.n. Likely paroxysmal atrial fibrillation. * Given the size and extent of her intracranial hemorrhage, anticoagulation is contraindicated in the short term. * The plan is for her to have a repeat head CT on or about 08/10/2017, with decision regarding anticoagulation to depend on findings on the head CT. Pulmonary hypertension on echocardiogram. * This may be due to mitral valve regurgitation, however, she is also at risk for obstructive sleep apnea. * Hypoxia daytime and nighttime has resolved. * She is advised to have a full sleep study after discharge for definitive diagnosis and treatment. Right hip pain. Possible DJD. Possible residual pain from site of catheter used for thrombolysis. * No signs or symptoms of infection or seroma. * She does not feel that it is significant enough to warrant on x-ray her knee specific treatment. Continue working with physical therapy. Dyslipidemia. She was taking atorvastatin prior to her hospitalization and the dose has been increased. Continue atorvastatin. Hypothyroidism, continue [place] Thyroid. Prophylaxis. At most moderate risk due to age and obesity. There is no paralyzed limb. * Ambulated 150 feet with PT. Continue to work on mobility. She will have sequential compression devices at night. Risk for seizure. There has been no seizure in the hospital. She has been on levetiracetam since she had her hemorrhage. Plan: outpatient [facility] and OT. 08/05/17 12:58 Subjective: No new problems or C/O's No F/C/CP/SOB/N/V/D/C Family ready for D/C Discussed level of ongoing supervision at home Objective: Vital Signs Temp Pulse Resp BP Pulse Ox 36.6 C 62 18 145/78 H 94 08/05/17 05:50 08/05/17 05:50 08/05/17 05:50 08/05/17 05:50 08/05/17 05:50 08/04/17 08/05/17 08/06/17 05:59 05:59 05:59 Intake Total 1560 1001 550 Balance 1560 1001 550 Physical Exam - Physical Exam General Appearance: alert, no apparent distress Neck: supple Respiratory: lungs clear Cardiac/Chest: regular rate, rhythm Skin: normal color, warm/dry Extremities: No pedal edema, No calf tenderness Neuro/Psych: alert, normal mood/affect, oriented x 3, aphasia, other (no acute changes) ICD10 Worksheet Patient Problems: Problems Problem Status Onset Aphasia S/P CVA Acute Non-traumatic intracranial subarachnoid hemorrhage Acute
--- NOTE | 2017-08-09 04:19 | GDS ---
[f rep st] DISCHARGE SUMMARY ADMITTING DIAGNOSIS: Cerebrovascular accident. DISCHARGE DIAGNOSIS: Cerebrovascular accident. OTHER DIAGNOSES: Likely paroxysmal atrial fibrillation, pulmonary hypertension , dyslipidemia, hypothyroidism. CONSULTATIONS: There were none. PROCEDURES: There were none. COMPLICATIONS: There were none. HISTORY/HOSPITAL COURSE: This patient was admitted from [facility]. She had originally presented on 07/22/2017 to [facility] with global aphasia, right facial droop, and dysarthria. Head CT showed a left MCA occlusion. She was treated with tPA and transferred to [facility] where she underwent a thrombectomy. She subsequently had a left temporal intracranial hemorrhage and extension to a subarachnoid hemorrhage in the left frontoparietal lobes. Examination of the etiology of the stroke with transthoracic and transesophageal echocardiograms showed a small patent foramen ovale, moderate to severe mitral regurgitation, left atrial enlargement, and mild aortic regurgitation. She was also noted to have pulmonary hypertension with an estimated right ventricular systolic pressure of 47. Due to the extent of the bleed, though atrial fibrillation was the likely etiology, she was not begun on anticoagulation. She had improvement during her stay. Her initial functional independence measure was 79 on 07/29/2017, which was consistent with custodial level of care. She improved to 85 on 08/02/2017, which is consistent with assisted living facility level of function. She was independent in her room during the day. She was noted to have impaired dual tasking and impaired motor planning while ambulating. She was able to climb 12 steps with supervision. She required supervision for activities of daily living. She did a kitchen task with no errors except she left the stove on after cooking, so she was recommended to have supervision for kitchen tasks. She has a right hemineglect. She continued to have moderate to severe expressive aphasia and mild to moderate receptive aphasia. Additionally, deficits were noted to memory, problem solving, and impulse control. Dysphagia was mild and improved. She was advanced to regular textured foods and thin liquids. She had a headache, likely due to the intracranial hemorrhage. She was treated with acetaminophen scheduled 1000 mg q.8 hours and used occasional tramadol. Regarding likely paroxysmal atrial fibrillation on no anticoagulation, she is to have a repeat head CT on approximately 08/10/2017. Subsequent decision regarding anticoagulation will depend on the findings of the head CT. Pulmonary hypertension was seen on the echocardiogram. She showed no signs or symptoms of congestive heart failure. She also was noted to have significant risk factors for obstructive sleep apnea, which might be etiologic. She was advised to have a full sleep study after discharge. LABS AND STUDIES DURING HER STAY: There were none. DISCHARGE PLAN: Condition upon discharge is good. Activity is ad darby but supervision for safety with mobility related tasks, as well as tasks with cognitive demands such as cooking or setting up medications. Diet is regular. DATE OF NEXT APPOINTMENT: She will follow up with her [place] primary care provider, Dr. aSrah Beth Barker, with [facility], and with [facility]. MEDICATIONS AT DISCHARGE: 1. Cholecalciferol 2000 units p.o. q. day. 2. Nature-Throid 32.5 mg tabs, 81.25 mg p.o. q. day. 3. Calcium carbonate/vitamin-D 1 p.o. q. day. 4. Nystatin powder to skin folds t.i.d. 5. Atorvastatin 40 mg p.o. q.h.s. 6. Acetaminophen 1000 mg p.o. q.8 hours. ISSUES TO BE ADDRESSED AT FOLLOWUP: 1. Functional status. She will continue therapies and can follow up with Neurology as well as primary care regarding how she is doing. Plan is for outpatient speech therapy and occupational therapy. 2. Likely paroxysmal atrial fibrillation as etiologic of the stroke. She will have a followup head CT and decisions can be made at that time, whether or not it is safe to proceed with anticoagulation and she will see [facility] likely for placement of a 1-month event monitor. 3. Possible obstructive sleep apnea. Advise a sleep study. 4. Headache is expected to improve as the brain clears the blood. Continuous acetaminophen. Copy requested to: Dr. Sarah Beth Barker [facility] /[id number]/MODL MTDD
== END 2017-08-05 13:00 | disposition home or self-care (01) | DRG 57 ==
LOC: BREH 16:41
PROVIDERS: ADMIT Internal Medicine; ATTEND Internal Medicine
PROC: F0636ZZ Communicative/Cognitive Integration Skills Treatment of Neurological System - Whole Body (ICD-10-PCS; principal; 2017-07-27)
PROC: F08Z7ZZ Vocational Activities and Functional Community or Work Reintegration Skills Treatment (ICD-10-PCS; principal; 2017-07-27)
PROC: F07M3ZZ Motor Function Treatment of Musculoskeletal System - Whole Body (ICD-10-PCS; principal; 2017-07-27)
DX: I69.320 Aphasia following cerebral infarction (principal); I69.322 Dysarthria following cerebral infarction; I69.391 Dysphagia following cerebral infarction; I69.392 Facial weakness following cerebral infarction; Z92.82 Status post administration of tPA (rtPA) in a different facility within the last 24 hours prior to admission to current facility; I69.00 Unspecified sequelae of nontraumatic subarachnoid hemorrhage; I48.0 Paroxysmal atrial fibrillation; Q21.1 Atrial septal defect; I27.20 Pulmonary hypertension, unspecified; I08.0 Rheumatic disorders of both mitral and aortic valves; E66.09 Other obesity due to excess calories; Z68.37 Body mass index [BMI] 37.0-37.9, adult; E78.5 Hyperlipidemia, unspecified; E03.9 Hypothyroidism, unspecified; G47.33 Obstructive sleep apnea (adult) (pediatric); R51 Headache; M54.2 Cervicalgia; M25.551 Pain in right hip
CPT/HCPCS: 92507-GN; 92522-GN; 92526-GN; 92610-GN; 97110-GP; 97112-GP; 97116-GP; 97162-GP; 97166-GO; 97530-GO; 97530-GP; 97532-GO; 97535-GO; 99366-GO; G0009